=== PATIENT | female | born 1980 | race Caucasian/White ===

== ENCOUNTER 2016-09-19 22:56 | Emergency (ER) | payer MEDICAID ==
[~2016-09-19] VITALS: Ht 157.5 cm; Wt 86.4 kg
[2016-09-19] MEDS ORDERED: CLON2 PO (23:06)
[2016-09-19] MEDS ORDERED: GuaiFENesin/D-METHORPHAN [SUGAR-FREE] 200-20MG/10 ML SYRUP UDCUP PO ONE (23:45)
[2016-09-19] MEDS ORDERED: DiphenhydrAMINE HCL 25 MG CAPSULE PO ONE (23:45)
[2016-09-19] MEDS ORDERED: ACETAMINOPHEN 500 MG TABLET PO ONE (23:45)
[2016-09-20 00:25] VITALS: BP 122/82
== END 2016-09-20 00:28 | disposition home or self-care (01) ==
LOC: EMS 22:58
DX: J06.9 Acute upper respiratory infection, unspecified (principal); J02.9 Acute pharyngitis, unspecified
CPT/HCPCS: 99284